=== PATIENT | female | born 1990 | race Two or more races ===

== ENCOUNTER 2025-03-15 09:00 | Outpatient (RCR) | payer MEDICAID, SELFPAY ==
--- NOTE | 2025-03-08 09:08 | PTNOTE_ITS ---
PT OP Initial Eval Patient Information Outpatient Physical Therapy Treatment Date: 03/08/25 Visit Reasons: low back pain/pain in RT foot Medical Diagnosis: M79.671 M54.50 Treatment Dx #1: LBP with radiculopathy Start of Care: 03/08/25 Date of Onset: 08/31/24 Smoking Status Smoking Status: Never smoker Initial Assessment Subjective: Pt is 34 yr old female who fell 08/31/24 and reports R LE pain and points to the lower back on the R side that goes into the glute and back of the LE down to the ankle. Increased pain when she walks, prolonged sitting, driving and she avoids these activities. PMH: allergies Imaging: MRI with provider Pt goal: to get rid of the pain Objective: ? Trunk ArOM: ? B SB 50% of normal with pain to the R ? Extension: 20% with pain around L4-5, L5-S1 with LBP ? Flexion: 2 from floor ? B rotation: 60% with pain to the L ? TTP: high of paraspinals L5-S1 ? Neuro: R SLR: positive Assessment: ?Pt presents with trunk extension sensitivity and overlying myofascial pain ? and TTP around L5-S1 consistent with lower lumbar disc bulge(s) with radiculopathy. Pt requires skilled therapy in order to decrease ? pain and improve sitting/standing tolerance and has fair rehab potential. Eval ?followed by HEP printout. Pt may benefit from further diagnostic imaging of the L/S such as MRI if ssx don't resolve with therapy. Short Term and Mcfp Goals 1. Ind with HEP ? 2. Improved sitting/standing tolerance to 30 minutes with <=4/10 LBP ? 3. Decreased lower paraspinal TTP from mod to min 4. Improved HH chore tolerance to at least 30 minutes with <=3/10 LBP and no ?increase in LE ssx ? Treatment Plan ?1. Manual therapy ? 2. Therex ? 3. Modalities as indicated, moist heat, ice, estim, mechanical traction Frequency and Duration: 1-2x a week for 10 Rx sessions plus the evaluation Certification Dates: 03/08/25 to 06/06/25 Procedure Charges OP PT Eval Mod Complex 30 minutes: Yes
--- NOTE | 2025-03-10 09:33 | PT.ODAYNRPT ---
PT Outpatient Daily Note OP Daily Note Outpatient Physical Therapy Treatment Date: 03/10/25 Visit Reasons: low back pain/pain in RT foot Subjective: Pt reports compliance with HEP, has been doing DKTC exercise. Objective: Please see flow sheet for ther ex list. Assessment: Pt instructed on REIL exercise, responds R LE symptoms and decrease pain with forward lumbar flexion. Pt encouraged to perform for HEP. Plan: Continue with poC. Assess response to treatment. Length of Time (minutes) of Treatment: 30 Minutes Procedure Charges Therapeutic Exercise 30 minutes: Yes
--- NOTE | 2025-03-15 10:02 | PT.ODAYNRPT ---
PT Outpatient Daily Note OP Daily Note Outpatient Physical Therapy Treatment Date: 03/15/25 Visit Reasons: low back pain/pain in RT foot Subjective: Less LBP since last visit and she's doing HEP of prone extension Objective: See F/S for therex MT: STM R side of L/S x5' Assessment: High TTP of R L4-5 region on the R side Plan: Continue per POC Length of Time (minutes) of Treatment: 30 Minutes Procedure Charges Therapeutic Exercise 30 minutes: Yes
== END 2025-03-26 23:59 | disposition home or self-care (01) ==
LOC: CPTX 09:00
PROVIDERS: PCP Physician Assistant; Referring Provider Physician Assistant; Visit Provider Physician Assistant
DX: M54.16 Radiculopathy, lumbar region (principal); M79.671 Pain in right foot
CPT/HCPCS: 97110; 97162